=== PATIENT | female | born 1970 | race Two or more races ===

== ENCOUNTER 2021-04-13 00:22 | Emergency (ER) | payer OTHER ==
[~2021-04-13] VITALS: Ht 162.6 cm; Wt 59.0 kg
[2021-04-13] MEDS ORDERED: ONDANSETRON HCL 4MG/2ML INJ IV STA (01:30)
[2021-04-13] MEDS ORDERED: MORPHINE SULFATE 4 MG/ML CPJ (NOT FOR IM USE) IV STA (01:30)
[2021-04-13] MEDS ORDERED: IOHEXOL-350 100 ML BOTTLE ONE (02:18)
[2021-04-13 02:23] LABS: BASOPHILS % 0.5 % (0.0-2.0); EOSINOPHILS % 1.5 % (0.0-5.0); HEMOGLOBIN. 10.3 g/dL (12.0-16.0); LYMPHOCYTES % 29.8 % (20.0-50.0); MEAN CORPUSCULAR VOLUME 87.6 fL (81.0-99.0); MEAN PLATELET VOLUME 9.7 fl (7.4-10.4); MONOCYTES % 5.5 % (2.0-8.0); NEUTROPHILS % 62.7 % (40.0-76.0); PLATELET 83 x1000/uL (130-400); RED BLOOD CELL COUNT 3.43 mill/uL (4.2-5.4); RED CELL DISTRIBUTION WIDTH 14.5 % (11.6-14.6)
[2021-04-13 02:27] LABS: CHLORIDE 98 mEq/L (98-107)
[2021-04-13] MEDS ORDERED: VANCOMYCIN 1 G PREMIX 200 ML IV ONE (04:00)
[2021-04-13] MEDS ORDERED: PIPERACILLIN/TAZ 3.375G PREMIX 50 ML IV ONE (04:00)
[2021-04-13 05:40] VITALS: BP 147/66
== END 2021-04-13 06:00 | disposition short-term general hospital (02) ==
LOC: ER 00:22
DX: J18.9 Pneumonia, unspecified organism (principal); R07.9 Chest pain, unspecified; R06.02 Shortness of breath; E78.00 Pure hypercholesterolemia, unspecified; I11.0 Hypertensive heart disease with heart failure; I50.9 Heart failure, unspecified; I25.2 Old myocardial infarction; N28.9 Disorder of kidney and ureter, unspecified; Z98.890 Other specified postprocedural states; Z88.8 Allergy status to other drugs, medicaments and biological substances; Z20.822 Contact with and (suspected) exposure to COVID-19
CPT/HCPCS: 36415; 71045; 71275; 74174; 80053; 83605; 84484; 85025; 87040; 93005; 96365; 99285; C9803; J2270; J2543; J3370; Q9967; U0003; U0005; J2405